=== PATIENT | male | born 2005 | race Caucasian/White ===

== ENCOUNTER 2024-02-18 09:22 | Emergency (ER) | payer OTHER ==
[~2024-02-18] VITALS: Ht 185.4 cm; Wt 55.1 kg
[2024-02-18 09:27] VITALS: BP 134/83; TEMP 97.5; O2SAT 97
[2024-02-18] MEDS: IBUPROFEN 600MG TAB PO ONE (11:55)
== END 2024-02-18 12:28 | disposition home or self-care (01) ==
LOC: M ED 09:22
DX: S09.90XA Unspecified injury of head, initial encounter (principal); R55 Syncope and collapse; W22.8XXA Striking against or struck by other objects, initial encounter; Y92.330 Ice skating rink (indoor) (outdoor) as the place of occurrence of the external cause; Y93.22 Activity, ice hockey; Y99.9 Unspecified external cause status; J34.89 Other specified disorders of nose and nasal sinuses; Z88.0 Allergy status to penicillin